=== PATIENT | male | born 2005 | race Caucasian/White ===

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

== ENCOUNTER 2024-06-03 07:56 | Outpatient (REF) | payer MEDICAID, SELFPAY ==
--- NOTE | 2024-06-03 08:04 | PFT_ITS ---
Flows: FEV1: 96 % of predicted at 4.30 L FVC: 95 % of predicted at 5.01 L FEV1/FVC: 86 % Bronchodilator response: Present Volumes: Total lung capacity: 99 % of predicted at 6.38 L Residual volume: 125 % of predicted at 1.71 L Slow vital capacity: 94 % of predicted at 4.67 L Expiratory reserve volume: 93 % of predicted at 1.56 L Diffusion capacity: Normal Impression: No obstructive or restrictive ventilatory defect. Positive bronchodilator response. Increased residual volume suggests air trapping. MTDD
[2024-06-03 14:31] VITALS: PULSE 85; O2SAT 99
== END 2024-06-03 07:57 | disposition home or self-care (01) ==
LOC: HO.RESP 07:56
PROVIDERS: Visit Provider Family Medicine
DX: J45.20 Mild intermittent asthma, uncomplicated (principal)
CPT/HCPCS: 94010; 94640; 94727; 94729

== ENCOUNTER → 2024-06-03 08:04 | Outpatient (BNV) | payer MEDICAID, SELFPAY | PROVIDERS: Visit Provider Internal Medicine Pulmonary Disease | DX: J45.909 Unspecified asthma, uncomplicated (principal) | CPT/HCPCS: 94060; 94727; 94729 ==

== ENCOUNTER 2025-01-04 11:11 | Outpatient (REF) | payer MEDICAID, SELFPAY ==
[2025-01-04 14:49] LABS: Alanine Aminotransferase 22 U/L (0-40); Albumin Level 4.7 g/dL (3.5-5.0); Alkaline Phosphatase 72 U/L (39-117); Anion Gap 12 (12-20); Aspartate Amino Transferase 18 U/L (5-37); Bilirubin Total 0.2 mg/dL (0.0-1.0); Blood Urea Nitrogen 10 mg/dL (9-16); Calcium 9.7 mg/dL (8.4-10.2); Carbon Dioxide 30 mmol/L (22-29); Chloride 103 mmol/L (96-108); Estimated Glomerular Filt Rate > 60; Glucose Random 104 mg/dL (60-115); Potassium 3.8 mmol/L (3.3-5.1); Sodium 141 mmol/L (135-145); Total Protein 7.7 g/dL (6.5-8.0)
== END 2025-01-04 11:12 | disposition home or self-care (01) ==
LOC: HO.CHCLDS 11:11
PROVIDERS: Visit Provider Internal Medicine
DX: L66.2 Folliculitis decalvans (principal)
CPT/HCPCS: 36415; 80053